=== PATIENT | female | born 1955 | race African-American/Black ===

== ENCOUNTER 2018-02-24 11:55 | Day surgery (SDC) | payer MEDICAID ==
[~2018-02-24] VITALS: Ht 172.7 cm; Wt 110.5 kg
[2018-02-24] MEDS ORDERED: PROPOFOL 1% 20 ML VIAL IVP ONE (11:56)
[2018-02-24] MEDS ORDERED: LIDOCAINE HCL/PF 2% 5 ML VIAL IM ONE (11:56)
[2018-02-24] MEDS ORDERED: SODIUM CHLORIDE 0.9% 1,000 ML IV ONE ×2 (12:08→12:15)
[2018-02-24] MEDS ORDERED: LORA10TA7 PO (12:26)
[2018-02-24] MEDS ORDERED: VALS160T2 PO (12:26)
[2018-02-24] MEDS ORDERED: RANI150T7 PO (12:26)
[2018-02-24] MEDS ORDERED: AMLO-512 PO (12:26)
[2018-02-24] MEDS ORDERED: ALBUTEROL SULFATE 2.5 MG/0.5 ML NEB SOLUTION NEB ONE ×2 (15:00→15:08)
[2018-02-24] MEDS ORDERED: 0.9% SODIUM CHLORIDE 5 ML NEB SOLUTION NEB ONE (15:08)
[2018-02-24] MEDS ORDERED: IPRATROPIUM BROMIDE 0.5 MG/2.5 ML NEB SOLUTION NEB ONE (15:08)
== END 2018-02-24 16:00 | disposition home or self-care (01) ==
LOC: SURGERY 11:55
PROVIDERS: ATTEND Internal Medicine Gastroenterology
DX: K29.50 Unspecified chronic gastritis without bleeding (principal); K21.0 Gastro-esophageal reflux disease with esophagitis; E66.9 Obesity, unspecified; I10 Essential (primary) hypertension; I49.8 Other specified cardiac arrhythmias; F17.210 Nicotine dependence, cigarettes, uncomplicated; Z90.12 Acquired absence of left breast and nipple; Z68.37 Body mass index [BMI] 37.0-37.9, adult; Z72.89 Other problems related to lifestyle; Z79.899 Other long term (current) drug therapy
CPT/HCPCS: 43239; 88305; 88312; 88313; 94640; C1769; J2704; J3490; J7030

== ENCOUNTER 2018-03-30 16:37 | Emergency (ER) | payer MEDICAID ==
[~2018-03-30] VITALS: Ht 172.7 cm; Wt 109.1 kg
[~2018-03-30 16:37] MED LIST: AMLO-512 PO; LORA10TA7 PO; RANI150T7 PO; VALS160T2 PO
[2018-03-30] MEDS ORDERED: IPRATROPIUM BROMIDE 0.5 MG/2.5 ML NEB SOLUTION NEB ONE (19:00)
[2018-03-30] MEDS ORDERED: ALBUTEROL SULFATE 5 MG/ML 20 ML NEB SOLN [BULK] NEB ONE (19:00)
[2018-03-30] MEDS ORDERED: 0.9% SODIUM CHLORIDE 5 ML NEB SOLUTION NEB ONE (19:11)
[2018-03-30 19:24] LABS: BASOPHILS % (AUTO) 0.4 % (0.0-2.0); EOSINOPHILS % (AUTO) 0 % (1.0-6.0); HEMATOCRIT 40.8 % (36-46); HEMOGLOBIN 13.6 g/dL (12.0-16.0); LYMPHOCYTES # (AUTO) 0.6 K/uL (1.0-4.8); LYMPHOCYTES % (AUTO) 5.2 % (22.0-44.0); MEAN CORPUSCULAR HEMOGLOBIN 30.4 pg (26.0-34.0); MEAN CORPUSCULAR HGB CONC 33.4 G/dL (31.0-37.0); MEAN CORPUSCULAR VOLUME 91 fL (80-100); MONOCYTES # (AUTO) 0.8 K/uL (0.1-1.0); PLATELET COUNT (AUTO) 370 K/uL (150-450); RED BLOOD CELL COUNT(AUTO) 4.49 MIL/uL (4.00-5.20); RED CELL DISTRIBUTION WIDTH 14.3 % (11.5-14.5)
[2018-03-30 19:25] LABS: NEUTROPHILS % (AUTO) 87.4 % (40.0-70.0)
[2018-03-30 19:34] LABS: ANION GAP 9 mmol/L (8-16); CARBON DIOXIDE 25 mmol/L (22-29); CHLORIDE 99 mmol/L (98-107); CREATININE 0.89 mg/dL (0.60-1.30); GLOMERULAR FILTR. RATE CALC > 60 mL/min (>60); GLUCOSE,RANDOM 122 mg/dL (70-110); SODIUM SERUM 133 mmol/L (136-145); UREA NITROGEN, BLOOD 21 mg/dL (7-18)
[2018-03-30 19:41] LABS: ALANINE AMINOTRANSFERASE 22 U/L (12-78); ALBUMIN 3.6 g/dL (3.4-5.0); ALKALINE PHOSPHATASE 48 U/L (46-116); ASPARTATE AMINOTRANSFERASE 15 U/L (15-37); BILIRUBIN,TOTAL 0.2 mg/dL (0.1-1.0); TOTAL PROTEIN, SERUM 8.1 g/dL (6.4-8.2)
[2018-03-30 19:48] LABS: PLATELET MORPHOLOGY COMMENT LARGE PLTS PRESENT
[2018-03-30 19:57] LABS: B-TYPE NATRIURETIC PEPTIDE 23 pg/mL (0-100)
[2018-03-30] MEDS ORDERED: AZITHROMYCIN 250 MG TABLET PO ONE (20:30)
[2018-03-30 20:35] VITALS: BP 142/81
== END 2018-03-30 20:39 | disposition home or self-care (01) ==
LOC: EMS 16:37
DX: J18.9 Pneumonia, unspecified organism (principal); I10 Essential (primary) hypertension; F17.210 Nicotine dependence, cigarettes, uncomplicated
CPT/HCPCS: 36415; 71046; 80053; 83880; 85025; 87040; 94644; 99285; 99406; J7611